=== PATIENT | female | born 1990 | race Caucasian/White ===

== ENCOUNTER 2020-08-12 09:11 | Emergency (ER) | payer OTHER ==
[~2020-08-12] VITALS: Ht 170.2 cm; Wt 63.5 kg
[2020-08-12 09:15] VITALS: BP 111/40
--- NOTE | 2020-08-12 09:23 | NUR ---
30 Y/O FEMALE C/O BODY ACHES AND FEVER FOR 5 DAYS. HAS HAD CONTACT WITH COVID + PATIENT. DENIES ANY SOB,COUGH, N/V/D. NO DISTRESS NOTED AT THIS TIME. NO PMH NKDA
--- NOTE | 2020-08-12 09:41 | NUR ---
VICKEY SWABBED AND WALKED TO LAB
[2020-08-12 09:43] VITALS: BP 111/40
--- NOTE | 2020-08-12 09:44 | NUR ---
Patient discharged with v/s stable. Written and verbal after care instructions given and explained. Patient verbalized understanding. Ambulatory with steady gait. All questions addressed prior to discharge. Advised to follow up with PMD.
== END 2020-08-12 09:44 | disposition home or self-care (01) ==
LOC: MED 09:11
DX: R51.9 Headache, unspecified (principal); Z20.828 Contact with and (suspected) exposure to other viral communicable diseases; R68.83 Chills (without fever); F12.90 Cannabis use, unspecified, uncomplicated
CPT/HCPCS: 99283